=== PATIENT | male | born 1990 ===

== ENCOUNTER 2016-05-10 12:20 | Emergency (ER) | payer SELFPAY ==
[2016-05-10 12:42] VITALS: BP 130/73; PULSE 82; RESP 18; TEMP 98.3; O2SAT 100
--- NOTE | 2016-05-10 13:01 | ED PDOC ---
HPI: General Adult Time Seen by Provider: 05/10/16 12:48 Chief Complaint (Nursing): Male Genitourinary Chief Complaint (Provider): headaches History Per: Patient Additional Complaint(s): Patient presents to emergency department for evaluation of intermittent headaches that have been ongoing for 2 weeks. Patient states headaches are associated with light sensitivity and nausea, he denies any vomiting, fever or chills. Patient has not taken any meds for headache relief in the past 2 weeks. He is tolerating liquids and solids. Patient also complains of increased frequency of urination. Patient reports history of migraines. PMD: none Past Medical History Reviewed: Historical Data, Nursing Documentation, Vital Signs Vital Signs: Last Vital Signs Temp 98.3 F 05/10/16 12:39 Pulse 82 05/10/16 12:39 Resp 18 05/10/16 12:39 BP 130/73 05/10/16 12:39 Pulse Ox 100 05/10/16 14:22 - Medical History PMH: Migraine - Surgical History Surgical History: Tonsillectomy (and adenoids) - Family History Family History: States: No Known Family Hx - Living Arrangements Living Arrangements: With Family - Social History Current smoker - smoking cessation education provided: No Alcohol: Social Drugs: Cannabis - Home Medications Home Medications: Ambulatory Orders Medication Instructions Recorded Naproxen [Naprosyn] 500 mg PO BID #15 tab 05/10/16 - Allergies Allergies/Adverse Reactions: Allergies Allergy/AdvReac Type Severity Reaction Status Date / Time amoxicillin Allergy RASH Verified 05/10/16 12:38 Review of Systems ROS Statement: Except As Marked, All Systems Reviewed And Found Negative Constitutional: Negative for: Fever, Chills, Weakness Cardiovascular: Negative for: Chest Pain Respiratory: Negative for: Cough Gastrointestinal: Positive for: Nausea. Negative for: Vomiting, Abdominal Pain , Diarrhea Genitourinary Male: Positive for: Frequency. Negative for: Dysuria, Incontinence, Hematuria Neurological: Positive for: Headache. Negative for: Dizziness Physical Exam - Reviewed Nursing Documentation Reviewed: Yes Vital Signs Reviewed: Yes - Physical Exam Appears: Positive for: Well, Non-toxic, No Acute Distress Skin: Negative for: Rash Eye Exam: Positive for: Normal appearance, EOMI, PERRL ENT: Positive for: Normal ENT Inspection Neck: Positive for: Normal Cardiovascular/Chest: Positive for: Regular Rate, Rhythm Respiratory: Positive for: Normal Breath Sounds Gastrointestinal/Abdominal: Positive for: Normal Exam, Soft. Negative for: Tenderness, Distended, Guarding, Rebound Extremity: Positive for: Normal ROM Neurologic/Psych: Positive for: Alert, Oriented - Laboratory Results Result Diagrams: 05/10/16 13:15 05/10/16 13:15 Urine dip results: Negative for: Leukocyte Esterase, Blood, Nitrate, Ketones, Glucose, Bilirubin, Protein - ECG O2 Sat by Pulse Oximetry: 100 Pulse Ox Interpretation: Normal - Other Rad CT head X-Ray: Read By Radiologist X-Ray Interpretation: negative Medical Decision Making Medical Decision Makin25 year old with headaches Plan: CT head CBC CMP IVF PO tylenol Urine dip Patient is aware of all diagnostic testing results, headache is resolved after tylenol dose given. Prescription given for Naprosyn. Patient was referred to clinic for follow up. Disposition - Clinical Impression Clinical Impression: Headache - Patient ED Disposition Is Patient to be Admitted: No Counseled Patient/Family Regarding: Studies Performed, Diagnosis, Need For Followup, Rx Given - Disposition Referrals: [facility] [place] [Outside] Disposition: Routine/Home Disposition Time: 14:18 Condition: STABLE Additional Instructions: Increase your daily water intake. Prescription meds as directed as needed for headache. Follow up with clinic in 2-3 days. Prescriptions: Naproxen [Naprosyn] 500 mg PO BID #15 tab Instructions: General Headache (ED) Forms: [facility] School/Work Excuse Results - Lab Results Lab Results: 05/10/16 13:15 WBC 6.6 RBC 4.55 Hgb 14.5 Hct 42.4 MCV 93.2 MCH 31.9 H MCHC 34.2 RDW 13.3 Plt Count 169 MPV 9.8 Neut % (Auto) 65.4 Lymph % (Auto) 25.0 [place] % (Auto) 8.0 Eos % (Auto) 0.9 Baso % (Auto) 0.7 Neut # 4.3 Lymph # 1.7 [place] # 0.5 Eos # 0.1 Baso # 0.0 Sodium 145 Potassium 4.2 Chloride 104 Carbon Dioxide 31 H Anion Gap 14 BUN 12 Creatinine 0.9 Est GFR ( Amer) > 60 Est GFR (Non-Af Amer) > 60 Random Glucose 86 Calcium 9.5 Total Bilirubin 0.8 AST 20 ALT 16 L Alkaline Phosphatase 58 Total Protein 7.7 Albumin 4.6 Globulin 3.1 Albumin/Globulin Ratio 1.5
[2016-05-10] MEDS ORDERED: Sodium Chloride 0.9% 1,000 ML IV STA (13:03)
[2016-05-10 13:28] LABS: BASO % 0.7 % (0.0-2.0); EOS # 0.1 K/uL (0.0-0.7); EOS % 0.9 % (0.0-4.0); HEMATOCRIT 42.4 % (35.0-51.0); LYMPH # 1.7 K/uL (1.0-4.3); MEAN CELL VOLUME 93.2 fl (80.0-94.0); MEAN CORPUSCULAR HEMOGLOBIN 31.9 pg (27.0-31.0); MEAN CORPUSCULAR HGB CONC 34.2 g/dL (33.0-37.0); MEAN PLATELET VOLUME 9.8 fl (7.2-11.7); MONO # 0.5 K/uL (0.0-0.8); NEUT # 4.3 K/uL (1.8-7.0); NEUT % 65.4 % (50.0-75.0); RED CELL DISTRIBUTION WIDTH 13.3 % (11.5-14.5); WHITE BLOOD COUNT 6.6 K/uL (4.8-10.8)
[2016-05-10 13:40] LABS: ALB/GLOB RATIO 1.5 (1.0-2.1); ALKALINE PHOSPHATASE 58 U/L (38-126); ALT/SGPT 16 U/L (21-72); AST/SGOT 20 U/L (17-59); BILIRUBIN,TOTAL 0.8 mg/dl (0.2-1.3); BLOOD UREA NITROGEN 12 mg/dl (9-20); CALCIUM 9.5 mg/dL (8.4-10.2); CARBON DIOXIDE 31 mmol/L (22-30); CHLORIDE 104 mmol/L (98-107); GFR AFRICAN-AMERICAN > 60; GLUCOSE,RANDOM 86 mg/dL (75-110); POTASSIUM 4.2 MMOL/L (3.6-5.0); SODIUM 145 mmol/l (132-148); TOTAL PROTEIN 7.7 G/DL (6.3-8.2)
--- NOTE | 2016-05-10 14:10 | CT ---
PROCEDURE: CT HEAD WITHOUT CONTRAST. HISTORY: headache COMPARISON: None available. TECHNIQUE: Axial computed tomography images were obtained through the head/brain without intravenous contrast. Radiation dose: Total exam DLP = 827.06 mGy-cm. FINDINGS: HEMORRHAGE: No intracranial hemorrhage. BRAIN: No mass effect or edema. No atrophy or chronic microvascular ischemic changes. VENTRICLES: Unremarkable. No hydrocephalus. CALVARIUM: Unremarkable. PARANASAL SINUSES: Unremarkable as visualized. No significant inflammatory changes. MASTOID AIR CELLS: Unremarkable as visualized. No inflammatory changes. OTHER FINDINGS: None. IMPRESSION: No intracranial mass, hemorrhage or evidence of acute infarct. Unremarkable examination.
== END 2016-05-10 14:31 | disposition home or self-care (01) ==
LOC: H.ER 12:20
DX: R51 Headache (principal)
CPT/HCPCS: 70450; 80053; 85025; 96360; 99284; J7040